=== PATIENT | female | born 1930 | race Caucasian/White ===

== ENCOUNTER 2017-06-01 14:01 | Inpatient (IN) | payer MEDICARE, BC ==
[~2017-06-01] VITALS: Ht 167.6 cm; Wt 60.2 kg
[~2017-06-01 14:01] MED LIST: COMBIGAN 0.2%-0.5 ML OU
[2017-06-01] MEDS ORDERED: IRON TABLETS325 MG PO (14:18)
[2017-06-01 16:05] LABS: COLLECTION METHOD CATHETER
[2017-06-01 16:10] LABS: MUCOUS Present /lpf; PH 6 (5-8); SQUAMOUS EPITHELIAL None Seen /hpf; URINE APPEARANCE Clear; URINE BACTERIA None Seen /hpf; URINE BILIRUBIN Negative (NEGATIVE); URINE BLOOD Negative (NEGATIVE); URINE COLOR Yellow; URINE GLUCOSE Negative (NEGATIVE); URINE KETONE 1+ (NEGATIVE); URINE LEUKOCYTE ESTERASE Negative (NEGATIVE); URINE PROTEIN(semi-quant) Negative (NEGATIVE); URINE RBC 0-2 /hpf; URINE UROBILINOGEN Negative (NEGATIVE); URINE WBC 0-2 /hpf
[2017-06-01 16:13] LABS: BASO # 0.1 (0.0-0.2); BASO % 0.6 % (0.0-2.0); EOS % 0.4 % (0-4.0); GRAN # 8.8 (1.4-6.5); GRAN % 80.6 % (42.2-75.2); HEMATOCRIT 47.3 % (37.0-47.0); HEMOGLOBIN 16.2 g/dl (12.5-16.0); LYMPH # 1.2 (1.2-3.4); LYMPH % 11.1 % (20.0-51.0); MEAN CELL VOLUME 94 fl (80.0-100.0); MEAN CORPUSCULAR HEMOGLOBIN 32 pg (27.0-31.0); MEAN CORPUSCULAR HGB CONC 34 g/dl (33.0-37.0); MEAN PLATELET VOLUME 9.3 fl (7.4-10.4); MONO # 0.7 (0.1-0.6); MONO % 6.4 % (1.7-9.3); PLATELET COUNT 200 K/mm3 (130-400); RED BLOOD COUNT 5.04 M/mm3 (4.10-5.30)
[2017-06-01 16:20] LABS: INR 1.1 (0.8-3.0); PROTHROMBIN TIME 12.3 SECONDS (9.7-12.8)
[2017-06-01 16:22] LABS: ADJUSTED CALCIUM 9.3 mg/dL (8.4-10.2); ALBUMIN 4.3 gm/dL (3.5-5.0); BILIRUBIN,TOTAL 0.8 mg/dL (0.0-1.0); CALCIUM 9.5 mg/dL (8.4-10.2); CREATININE, serum 0.83 mg/dL (0.52-1.25); POTASSIUM 4.3 mmol/L (3.4-5.0); TOTAL PROTEIN 7.3 gm/dL (6.4-8.2)
[2017-06-01 16:23] LABS: PARTIAL THROMBOPLASTIN TIME 29.8 SECONDS (26.0-37.0)
[2017-06-01 16:48] VITALS: BP 156/83; PULSE 90; TEMP 98.4
[2017-06-01 17:00] VITALS: BP 156/83; PULSE 90; TEMP 98.4
[2017-06-01] MEDS ORDERED: B-121000 MCG PO (17:20)
[2017-06-01] MEDS ORDERED: NATURE'S BLE1000 MCG PO (17:21)
[2017-06-01] MEDS ORDERED: VITAMIN D 400400 IU PO (17:21)
[2017-06-01 21:15] VITALS: BP 151/60; PULSE 85; TEMP 97.6
[2017-06-02] VITALS (12 sets, daily range): BP systolic 142–166; BP diastolic 63–83; PULSE 65–91; TEMP 97.8–98.9
[2017-06-03 02:22] VITALS: BP 143/66; PULSE 97; TEMP 97.8
[2017-06-03 05:59] VITALS: BP 99/50; PULSE 93; TEMP 97.6
[2017-06-03 07:20] LABS: HEMATOCRIT 41.9 % (37.0-47.0); HEMOGLOBIN 14.4 g/dl (12.5-16.0)
[2017-06-03 09:12] VITALS: BP 129/55; PULSE 83; TEMP 97.7
[2017-06-03 13:55] VITALS: BP 112/44; PULSE 80; TEMP 98
[2017-06-03 17:46] VITALS: BP 136/55; PULSE 91; TEMP 98.4
[2017-06-03 22:00] VITALS: BP 139/57; PULSE 108; TEMP 98.2
[2017-06-04 02:09] VITALS: BP 121/49; PULSE 91; TEMP 98.5
[2017-06-04 05:00] VITALS: BP 136/48; PULSE 97; TEMP 99.3
[2017-06-04 07:26] LABS: HEMOGLOBIN 12.7 g/dl (12.5-16.0)
[2017-06-04 07:40] VITALS: BP 132/56; PULSE 92; TEMP 98.7
[2017-06-04 11:17] VITALS: BP 92/35; PULSE 76; TEMP 97.7
[2017-06-04 14:13] VITALS: BP 110/39; PULSE 81; TEMP 97.7
[2017-06-04] MEDS ORDERED: CELEBREX 200MG200 MG PO (16:11)
[2017-06-04] MEDS ORDERED: NORCO 325 MG-51 TAB PO (16:13)
[2017-06-04 16:21] VITALS: BP 110/39; PULSE 81; TEMP 97.7
== END 2017-06-04 16:35 | DRG 470 ==
LOC: COL.ER 14:01 → SURG 15:46
PROVIDERS: Emergency Medicine; Orthopaedic Surgery
PROC: 0SRS0J9 Replacement of Left Hip Joint, Femoral Surface with Synthetic Substitute, Cemented, Open Approach (ICD-10-PCS; principal; 2017-06-02 14:00)
DX: S72.002A Fracture of unspecified part of neck of left femur, initial encounter for closed fracture (principal); W01.0XXA Fall on same level from slipping, tripping and stumbling without subsequent striking against object, initial encounter
CPT/HCPCS: A9284; C1713; C1776; J0171; J0690; J2250; J2270; J2405; J2704; J7030; J7120

== ENCOUNTER → 2017-06-09 | Outpatient (REF) ==
[~2017-06-09] MED LIST changes: +B-121000 MCG PO; +CELEBREX 200MG200 MG PO; +IRON TABLETS325 MG PO; +NATURE'S BLE1000 MCG PO; +NORCO 325 MG-51 TAB PO; +VITAMIN D 400400 IU PO
[2017-06-09 11:41] LABS: COLLECTION METHOD CLEAN CATCH
[2017-06-09 12:05] LABS: MUCOUS Present /lpf; PH 5 (5-8); SQUAMOUS EPITHELIAL 0-2 /hpf; URINE APPEARANCE Turbid; URINE BACTERIA Rare /hpf; URINE BILIRUBIN Negative (NEGATIVE); URINE BLOOD 2+ (NEGATIVE); URINE COLOR Yellow; URINE GLUCOSE Negative (NEGATIVE); URINE KETONE Negative (NEGATIVE); URINE LEUKOCYTE ESTERASE 2+ (NEGATIVE); URINE PROTEIN(semi-quant) Negative (NEGATIVE); URINE WBC >50 /hpf
== END ==
LOC: ZCOL.LAB 11:39
PROVIDERS: Nurse Practitioner Family
DX: R39.15 Urgency of urination (principal)

== ENCOUNTER → 2017-07-31 | Outpatient (CLI) | payer MEDICARE, BC | LOC: COL.VAS 12:07 | DX: I82.422 Acute embolism and thrombosis of left iliac vein (principal); I82.4Z2 Acute embolism and thrombosis of unspecified deep veins of left distal lower extremity; Z98.890 Other specified postprocedural states ==